=== PATIENT | male | born 1960 | race Caucasian/White ===

== ENCOUNTER 2019-03-08 08:11 | Emergency (ER) | payer OTHER ==
[2019-03-08] MEDS: FAMOTIDINE 20 MG TAB PO (08:50)
[2019-03-08] MEDS: predniSONE 20 MG TAB PO (08:50)
[2019-03-08] MEDS: DIPHENHYDRAMINE 25 MG CAP PO (08:50)
== END 2019-03-08 09:17 | disposition home or self-care (01) ==
LOC: FTE 09:17
DX: L50.0 Allergic urticaria (principal)
CPT/HCPCS: 99283; J7512